=== PATIENT | female | born 1980 | race Caucasian/White ===

== ENCOUNTER → 2017-11-21 | Outpatient (CLI) | payer BC ==
[2005-01-06 13:38] VITALS: TEMP 97.5
== END ==
LOC: MC.RAD 08:12
DX: Z12.31 Encounter for screening mammogram for malignant neoplasm of breast (principal)

== ENCOUNTER → 2019-09-05 | Outpatient (CLI) | payer BC ==
[2005-01-06 13:38] VITALS: TEMP 97.5
== END ==
LOC: MC.RAD 15:12
DX: Z12.31 Encounter for screening mammogram for malignant neoplasm of breast (principal)

== ENCOUNTER → 2020-09-08 | Outpatient (CLI) | payer BC ==
[2005-01-06 13:38] VITALS: TEMP 97.5
== END ==
LOC: MC.RAD 09:27
DX: Z12.31 Encounter for screening mammogram for malignant neoplasm of breast (principal)

== ENCOUNTER → 2020-11-26 | Outpatient (CLI) | payer BC ==
[2005-01-06 13:38] VITALS: TEMP 97.5
== END ==
LOC: COL.RAD 10:55
DX: H93.A9 Pulsatile tinnitus, unspecified ear (principal)
CPT/HCPCS: Q9967

== ENCOUNTER → 2021-06-15 | Outpatient (CLI) | payer BC ==
[2005-01-06 13:38] VITALS: TEMP 97.5
== END ==
LOC: ZCOL.LAB 16:50
DX: T14.8XXA Other injury of unspecified body region, initial encounter (principal)

== ENCOUNTER → 2022-04-06 | Outpatient (CLI) | payer BC, OTHER ==
[2005-01-06 13:38] VITALS: TEMP 97.5
== END ==
LOC: MC.RAD 08:23
DX: Z12.31 Encounter for screening mammogram for malignant neoplasm of breast (principal)

== ENCOUNTER → 2024-04-17 | Outpatient (CLI) | payer BC ==
[2005-01-06 13:38] VITALS: PULSE 95; TEMP 97.5
== END ==
LOC: MC.RAD 15:44
DX: Z12.31 Encounter for screening mammogram for malignant neoplasm of breast (principal)